=== PATIENT | female | born 1935 | race Caucasian/White ===

== ENCOUNTER 2017-02-20 10:55 | Day surgery (SDC) | payer MEDICARE, BC ==
[~2017-02-20] VITALS: Ht 165.1 cm; Wt 77.1 kg
[2017-02-20] MEDS ORDERED: SYNTHROID88 MCG PO (11:22)
[2017-02-20] MEDS ORDERED: GLUCOPHAGE500 MG PO (11:22)
[2017-02-20] MEDS ORDERED: CYCLOBENZAPRINE5 MG PO (11:23)
[2017-02-20] MEDS ORDERED: MULTIVITAMINS1 EAC7 PO (11:23)
[2017-02-20] MEDS ORDERED: PRAVASTATIN SOD20 MG PO (11:24)
[2017-02-20] MEDS ORDERED: TRIAMTERENE-HC1 EAC3 PO (11:24)
[2017-02-20] MEDS ORDERED: LISINOPRIL10 MG PO (11:24)
[2017-02-20] MEDS ORDERED: VOLTAREN100 GM TOP (11:25)
[2017-02-20] MEDS ORDERED: TYLENOL325 MG PO (11:34)
[2017-02-20] MEDS ORDERED: ADULT LOW DOSE81 MG PO (11:34)
[2017-02-20] MEDS ORDERED: NAPROXEN500 MG PO (13:04)
[2017-02-20] MEDS ORDERED: HYDROMORPHONE HC2 MG PO (13:05)
[2017-02-20] MEDS ORDERED: DILAUDID2 MG PO (14:08)
--- NOTE | 2017-02-20 21:54 | EKG ---
[facility] [address] [facility] [place] [address] Signed Normal sinus rhythm Minimal voltage criteria for LVH, may be normal variant Borderline ECG No previous ECGs available Confirmed by CARMEN BROOKS MD ([id number]) on 02/20/2017 9:53:48 PM Electronically Signed By: CARMEN BROOKS MD 02/20/17 [id number] PATIENT NAME: SUREKHA JOSE MONTEZ JORGE Electrocardiogram DATE OF : 33 PHYSICIAN: CARMEN BROOKS MD REPORT #: [id number] REPORT IS CONFIDENTIAL AND NOT TO BE RELEASED WITHOUT AUTHORIZATION
== END 2017-02-20 16:40 | disposition home or self-care (01) ==
LOC: DS 10:55 → EDSTATUS 13:00 → MS 13:00 → DS 16:40
PROVIDERS: Specialist
PROC: 0SBD4ZZ Excision of Left Knee Joint, Percutaneous Endoscopic Approach (ICD-10-PCS; principal; 2017-02-20 13:00)
DX: S83.232A Complex tear of medial meniscus, current injury, left knee, initial encounter (principal); E11.9 Type 2 diabetes mellitus without complications; Z98.890 Other specified postprocedural states
CPT/HCPCS: 01400; 80053; 85025; 93005; 93010; J0690; J1885; J2250; J2405; J2704; J3010; J7120

== ENCOUNTER 2024-07-09 09:51 | Emergency (ER) | payer MEDICARE, BC ==
[~2024-07-09] VITALS: Ht 165.1 cm; Wt 81.5 kg
[~2024-07-09 09:51] MED LIST: ADULT LOW DOSE81 MG PO; CYCLOBENZAPRINE5 MG PO; DILAUDID2 MG PO; GLUCOPHAGE500 MG PO; HYDROMORPHONE HC2 MG PO; LISINOPRIL10 MG PO; MULTIVITAMINS1 EAC7 PO; NAPROXEN500 MG PO; PRAVASTATIN SOD20 MG PO; SYNTHROID88 MCG PO; TRIAMTERENE-HC1 EAC3 PO; TYLENOL325 MG PO; VOLTAREN100 GM TOP
[2024-07-09] MEDS ORDERED: BUPROPION XL150 MG PO (10:14)
[2024-07-09] MEDS ORDERED: LEVOTHYROXINE100 MCG PO (10:14)
[2024-07-09] MEDS ORDERED: CELECOXIB200 MG PO (10:14)
[2024-07-09] MEDS ORDERED: AMLODIPINE BESYL5 MG PO (10:15)
[2024-07-09] MEDS ORDERED: TORSEMIDE5 MG PO (10:15)
[2024-07-09] MEDS ORDERED: PRAVASTATIN SOD40 MG PO (10:16)
[2024-07-09] MEDS ORDERED: TRAZODONE HCL50 MG PO (10:17)
[2024-07-09] MEDS ORDERED: PREGABALIN75 MG PO (10:18)
[2024-07-09] MEDS ORDERED: FISH OIL 500 M1 EAC1 PO (10:19)
[2024-07-09] MEDS ORDERED: SELENIUM200 MC1 PO (10:20)
[2024-07-09] MEDS ORDERED: B COMPLEX1 EACH PO (10:20)
[2024-07-09] MEDS ORDERED: VITAMIN B121000 MCG PO (10:20)
[2024-07-09] MEDS ORDERED: CALCIUM + D SO1 EACH PO (10:20)
[2024-07-09] MEDS ORDERED: GLUCOSAMINE SU PO (10:21)
[2024-07-09] MEDS ORDERED: COPPER2 MG PO (10:21)
[2024-07-09] MEDS ORDERED: HYDROmorphone HCL 1 MG/ML SYR IV PRN (10:30)
[2024-07-09] MEDS ORDERED: CYCLOBENZAPRINE HCL 10 MG TAB PO ONE (10:30)
[2024-07-09 10:37] LABS: BASOPHILS 0.1 % (0-2); EOSINOPHILS 2.4 % (0-6); HEMATOCRIT 39.9 % (35.0-50.0); HEMOGLOBIN 13.5 g/dL (12.0-18.0); LYMPHOCYTES 15.8 % (24-44); MCH 30.5 (27-36); MCHC 33.9 g/dl (30-36); MCV 89.9 fl (81-99); MONOCYTES 5.1 % (0-12); NEUTROPHILS 76.6 % (39-80); PLATELET COUNT 282 K/uL (140-440); RBC 4.43 M/ul (4.3-5.7); RDW 13.2 (10.5-15.0)
[2024-07-09 10:50] LABS: ALBUMIN/GLOBULIN RATIO 1.05 (1.1-2.4); BILIRUBIN, TOTAL 0.6 ng/dL (0.2-1.0); BUN/CREATININE RATIO 11.5 (6.0-28.6); CALCIUM 9.7 mg/dL (8.5-10.1); CREATININE, SERUM 1.13 mg/dL (0.55-1.02); PROTEIN, TOTAL 7.8 g/dL (6.4-8.2)
[2024-07-09] MEDS ORDERED: LIDOCAINE HCL 4% 1 EACH PATCH TD ONE (11:45)
[2024-07-09 12:04] LABS: BILIRUBIN, URINE NEGATIVE (negative); BLOOD/HGB, URINE NEGATIVE (Negative); KETONE, URINE NEGATIVE (Negative); LEUK ESTERASE, URINE NEGATIVE (negative); NITRITE, URINE POSITIVE (negative)
[2024-07-09 12:12] LABS: BACTERIA, URINE 3+ /hpf (negative); CASTS, URINE NONE SEEN \\lpf; COLLECTION TYPE, URINE CLEAN CATCH; CRYSTALS, URINE NONE SEEN (0-1+); RED BLOOD CELLS, URINE 0-1 /hpf (0-5)
[2024-07-09 12:13] LABS: REFLEX CULTURE, URINE Yes (No)
[2024-07-09] MEDS ORDERED: HYDROCODON-ACE1 EA10 PO (12:18)
[2024-07-09] MEDS ORDERED: CYCLOBENZAPRINE5 MG PO (12:18)
[2024-07-09] MEDS ORDERED: ACETAMINOPHEN 325 MG TAB PO ONE (12:45)
[2024-07-09] MEDS ORDERED: HYDROCODONE/ACETA 5/325 TAB PO ONE (12:45)
[2024-07-09 13:18] VITALS: BP 183/77
== END 2024-07-09 13:19 | disposition home or self-care (01) ==
LOC: ED 09:51
PROVIDERS: Emergency Medicine
DX: S39.012A Strain of muscle, fascia and tendon of lower back, initial encounter (principal); S39.011A Strain of muscle, fascia and tendon of abdomen, initial encounter; M62.830 Muscle spasm of back; M62.838 Other muscle spasm; Z88.5 Allergy status to narcotic agent; Z88.8 Allergy status to other drugs, medicaments and biological substances; Z79.1 Long term (current) use of non-steroidal anti-inflammatories (NSAID); Z79.899 Other long term (current) drug therapy; X50.0XXA Overexertion from strenuous movement or load, initial encounter
CPT/HCPCS: 36415; 74177; 80053; 81001; 83690; 85025; 87088; 96376; 99284-25; A9270; J1171; Q9967